=== PATIENT | male | born 2000 | race Caucasian/White ===

== ENCOUNTER 2022-03-23 19:52 | Emergency (ER) | payer OTHER, BC | END 2022-03-23 22:33 | disposition home or self-care (01) | LOC: ERS 19:52 | DX: S62.112A Displaced fracture of triquetrum [cuneiform] bone, left wrist, initial encounter for closed fracture (principal); F17.290 Nicotine dependence, other tobacco product, uncomplicated; V49.9XXA Car occupant (driver) (passenger) injured in unspecified traffic accident, initial encounter ==

== ENCOUNTER 2022-04-04 03:39 | Emergency (ER) | payer OTHER, BC ==
[2022-04-04] MEDS ORDERED: Ketorolac Tromethamine 30 MG/ML VIAL ONE (04:00)
== END 2022-04-04 05:07 | disposition home or self-care (01) ==
LOC: ERS 03:39
DX: M25.462 Effusion, left knee (principal); F17.290 Nicotine dependence, other tobacco product, uncomplicated; V49.9XXA Car occupant (driver) (passenger) injured in unspecified traffic accident, initial encounter
CPT/HCPCS: 96372; J1885